=== PATIENT | female | born 2000 | race Two or more races ===

== ENCOUNTER 2020-10-14 02:36 | Emergency (ER) | payer SELFPAY ==
[~2020-10-14] VITALS: Ht 160 cm; Wt 61.7 kg
[2020-10-14 02:36] VITALS: BP 112/65
--- NOTE | 2020-10-14 02:40 | NUR ---
URINE COLLECTED AND SENT TO LAB
[2020-10-14 03:12] LABS: BILIRUBIN,URINE Negative (NEGATIVE); COLOR,URINE YELLOW (YELLOW); LEUKOCYTE ESTERASE ,URINE Large (NEGATIVE); NITRITE, URINE Negative (NEGATIVE); PROTEIN,URINE Trace mg/dl (NEGATIVE); UGLUCOSE Negative (NEGATIVE); UROBILINOGEN,URINE 0.2 EU/dL (0.2)
[2020-10-14 03:26] LABS: BACTERIA,URINE Many /HPF (None Seen); SQUAMOUS EPITHELIAL CELL,UR Many /HPF (None Seen); WBC,URINE 81-100 /HPF (0-3)
[2020-10-14] MEDS ORDERED: NITR100C6 PO (03:32)
[2020-10-14] MEDS ORDERED: IBUP-1957 PO (03:32)
--- NOTE | 2020-10-14 03:36 | NUR ---
Patient discharged to home in stable condition. Written and verbal after care instructions given. Patient verbalizes understanding of instruction.pt. ambulatory with a steady gait
== END 2020-10-14 03:37 | disposition home or self-care (01) ==
LOC: ER 02:36
DX: N39.0 Urinary tract infection, site not specified (principal)
CPT/HCPCS: 81001; 84703-TC; 87086-TC; 87186-TC